=== PATIENT | female | born 1940 | race Caucasian/White ===

== ENCOUNTER → 2017-01-20 | Day surgery (SDC) | payer MEDICARE, BC ==
[~2017-01-20] MED LIST: ACETAMINOPHEN500 M5 PO; ADVIL200 M3 PO; ALEVE220 M1 PO; ASPIRIN ENTERI325 M1 PO; AVAPRO150 MG PO; BAYER ASPIRIN325 M1 PO; CALCIUM + D 6001 TA1 PO; CRESTOR PO; FISH OIL 1,0001 CAP PO; GABAPENTIN300 M2 PO; IRBESARTAN150 MG PO; LIORESAL10 MG PO; SYNTHROID112 MCG PO; SYNTHROID125 PO; TYL325 PO; TYLENOL EXTRA500 M1 PO; VICODIN 5-3001 EACH PO; VITAMIN D 22000 UNIT PO; VITAMIN D-32000 UNI2 PO; ZETIA PO
--- NOTE | ~2017-01-20 | OR ---
Unit #: [id number] #: [id number] Patient: JAEL SPARKS [id number] [address] [place], [place] [address] [id number] O MR#: [id number] NAME: JAEL SPARKS ROOM: Date of Procedure: 01/20/2017 Admission Date: 01/20/2017 Surgeon: Nahum Buckner M.D. : 1940 Attending Physician: Nahum Buckner M.D. Primary Care Physician: Indy Byrne M.D. [facility] OPERATIVE NOTE PROCEDURE PERFORMED Lumbar epidural steroid injection under x-ray guided needle placement with provider administered conscious sedation. PREOPERATIVE DIAGNOSES 1. Acute lumbar radiculitis. 2. Spinal stenosis, lumbosacral spine. 3. Listhesis, L3-L4. 4. Herniated disk, multiple levels. 5. Degenerative joint disease, lumbosacral spine. 6. Degenerative disk disease, lumbosacral spine. INDICATIONS FOR PROCEDURE The patient presents today with longstanding history of chronic lumbar radicular pain secondary to her underlying degenerative processes. She is generally fairly well managed medically with ongoing continuous conservative therapy. However, she does occasionally experience exacerbations, which break through her ongoing continuous conservative therapy and to date have only responded to epidural steroid injections. Her usual amount of response is 60% to 80% for 8 to 10 weeks. She is currently experiencing just such an exacerbation, which has been present for 2 to 4 weeks. She has broken through her ongoing continuous conservative management and is advancing in a crescendo pattern which has failed to respond and has begun to affect her activities of daily living. She presents today requesting an epidural steroid injection. After discussing risks and benefits of proceeding today with a lumbar approach epidural steroid injection, the patient agreed this would be the appropriate course of action. DESCRIPTION OF PROCEDURE She was then taken to the operating room, where she was prepped and draped in a sterile manner. Standard monitors were applied. She was sedated with 2 mg of IV Versed and lumbar epidural space accessed at the L4-L5 and the L2-L3 levels using loss of resistance technique and x-ray guidance. Needle placement was confirmed at each level with injection of 2 mL of Omnipaque. There was good superior and inferior flow at both of these injected levels. Following successful needle placement confirmation which required an x-ray time of 11 seconds, the patient received an injectate containing 4 mL normal saline and 40 mg of methylprednisolone at each level for a total injectate volume today of 8 mL of normal saline and 80 mg of methylprednisolone. She tolerated this procedure well. She was discharged home with followup instructions, which include an offer to return to this clinic as early as 04/28/2017 if we could be of further Unit #: [id number] #: [id number] Patient: JAEL SPARKS service to her. Dictated by... Linda Rivers/nishant TD: 01/21/2017 04:56 JOB #: [id number] CC: Alexander Vecnes M.D. [facility] OPERATIVE NOTE Page 1 of 1 X Mazin Buckner MD X PROCEDURE OPERATIVE NOTE
== END | disposition home or self-care (01) ==
LOC: CCSC 09:16
DX: M51.17 Intervertebral disc disorders with radiculopathy, lumbosacral region (principal); M48.07 Spinal stenosis, lumbosacral region; M47.27 Other spondylosis with radiculopathy, lumbosacral region; G89.29 Other chronic pain
CPT/HCPCS: J1040; J2250

== ENCOUNTER → 2017-04-28 | Day surgery (SDC) | payer MEDICARE, BC ==
--- NOTE | ~2017-04-28 | OR ---
Unit #: [id number] #: [id number] Patient: JAEL SPARKS [id number] [address] [place], [place] [address] [id number] O MR#: [id number] NAME: JAEL SPARKS ROOM: Date of Procedure: 04/28/2017 Admission Date: 04/28/2017 Surgeon: Nahum Buckner M.D. : 1940 Attending Physician: Mazin Buckner Primary Care Physician: Indy Byrne M.D. [facility] OPERATIVE NOTE PROCEDURE PERFORMED Lumbar epidural steroid injection under x-ray guided needle placement with provider administered conscious sedation. PREOPERATIVE DIAGNOSES 1. Acute lumbar radiculitis. 2. Spinal stenosis, lumbosacral spine. 3. Herniated disk multiple levels, lumbosacral spine. 4. Degenerative joint disease, lumbosacral spine. 5. Degenerative disk disease, lumbosacral spine. INDICATIONS FOR PROCEDURE The patient presents today with longstanding history of chronic lumbar radicular pain secondary to her underlying degenerative processes. She is generally fairly well managed medically with ongoing medication management as well as self-directed physical activity. She does however occasionally experience exacerbations, which breakthrough her ongoing conservative management and to date have only responded to epidural steroid injections. Her usual amount of relief is 60% to 80% for 8 to 10 weeks. She presents today with a 2-month history of crescendo pattern pain, which has advanced to the point that is now negatively impacting her activities of daily living. Her current exacerbation has broken through her ongoing management and is consistent with past exacerbations as well as consistent with her x-ray studies. After discussing risks and benefits of proceeding today with a lumbar approach epidural steroid injection utilizing a dual needle access technique, the patient now agreed this would be the appropriate course of action. DESCRIPTION OF PROCEDURE She was then taken to the operating room, where she was prepped and draped in a sterile manner. Standard monitors were applied. The lumbar epidural space accessed at the L4-L5 and the L2-L3 levels using loss of resistance technique and x-ray guidance. Needle placement was confirmed with injection of 2 mL of Omnipaque at each needle placement site. Dye flow at the L4-L5 level was approximately 80% in the inferior level. At the L2-L3 level, it was approximately 50% superior and 50% inferior. Following successful needle placement confirmation, which required an x-ray time of 9 seconds, the patient received an injectate containing 4 mL of normal saline and 40 mg of methylprednisolone at each site for a total injectate volume of 8 mL of normal saline and 80 mg of methylprednisolone. She tolerated this procedure well. She was discharged home with followup instructions, which include an offer to return to this clinic as early as 08/04/2017 if we could be of further service to her. Unit #: [id number] #: [id number] Patient: JAEL SPARKS Dictated by... Linda Rivers/nishant TD: 04/28/2017 13:31 JOB #: [id number] CC: Alexander Vences M.D. [facility] OPERATIVE NOTE Page 1 of 1 X Mazin Buckner MD X PROCEDURE OPERATIVE NOTE
== END | disposition home or self-care (01) ==
LOC: CCSC 11:30
DX: G89.29 Other chronic pain (principal); M51.17 Intervertebral disc disorders with radiculopathy, lumbosacral region; M47.27 Other spondylosis with radiculopathy, lumbosacral region; M48.07 Spinal stenosis, lumbosacral region; E03.9 Hypothyroidism, unspecified; F17.210 Nicotine dependence, cigarettes, uncomplicated; Z87.01 Personal history of pneumonia (recurrent); Z79.82 Long term (current) use of aspirin; Z79.899 Other long term (current) drug therapy; Z98.41 Cataract extraction status, right eye; Z98.42 Cataract extraction status, left eye; Z98.890 Other specified postprocedural states
CPT/HCPCS: J1040; J2250